=== PATIENT | male | born 2000 | race Caucasian/White ===

== ENCOUNTER 2021-05-05 17:21 | Emergency (ER) | payer BC ==
[~2021-05-05] VITALS: Ht 190.5 cm; Wt 90.5 kg
[2021-05-05] MEDS ORDERED: RABIES VACCINE /PF 2.5 UNITS IM-VACC ONE (18:00)
[2021-05-05] MEDS ORDERED: RABIES IMMUNE GLOBULIN/PF 300 UNITS/ML,1ML IM ONE (18:00)
[2021-05-05 18:48] VITALS: BP 112/71
== END 2021-05-05 19:11 | disposition home or self-care (01) ==
LOC: ED 18:00
DX: Z20.3 Contact with and (suspected) exposure to rabies (principal); Z23 Encounter for immunization
CPT/HCPCS: 90375; 90471; 90675; 96372

== ENCOUNTER 2021-05-08 19:02 | Emergency (ER) | payer BC ==
[~2021-05-08] VITALS: Ht 185.4 cm; Wt 89.4 kg
--- NOTE | 2021-05-08 19:42 | NUR ---
PT STATES HE NEEDS SECOND DOSE OF RABIES VACCINE.
--- NOTE | 2021-05-08 19:51 | NUR ---
RABIES VACCINE REQUESTED FROM PHARMACY.
[2021-05-08] MEDS ORDERED: RABIES VACCINE /PF 2.5 UNITS IM-VACC ONE (20:00)
[2021-05-08 20:42] VITALS: BP 133/76
[2021-05-09] MEDS ORDERED: KETOROLAC 30 MG/1 ML ONE (01:56)
[2021-05-09] MEDS ORDERED: MORPHINE SULFATE 4 MG/ML, 1ML ONE (01:57)
== END 2021-05-08 20:44 | disposition home or self-care (01) ==
LOC: ED 19:32
DX: Z20.3 Contact with and (suspected) exposure to rabies (principal); Z23 Encounter for immunization
CPT/HCPCS: 90471; 90675

== ENCOUNTER 2021-05-12 17:42 | Emergency (ER) | payer BC ==
[~2021-05-12] VITALS: Ht 185.4 cm; Wt 88.8 kg
[2021-05-12 17:45] VITALS: BP 128/54
--- NOTE | 2021-05-12 18:22 | NUR ---
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
[2021-05-12] MEDS ORDERED: RABIES VACCINE /PF 2.5 UNITS IM-VACC ONE (19:00)
== END 2021-05-12 19:48 | disposition home or self-care (01) ==
LOC: ED 18:10
DX: Z20.3 Contact with and (suspected) exposure to rabies (principal)
CPT/HCPCS: 90471; 90675; 99283

== ENCOUNTER 2021-05-20 11:01 | Emergency (ER) | payer BC ==
[~2021-05-20] VITALS: Ht 185.4 cm; Wt 87.4 kg
[2021-05-20 11:14] VITALS: BP 128/72
--- NOTE | 2021-05-20 11:25 | NUR ---
pt presents to ed for next round of rabies shots. states he has receieved 3/4 shots after potential bat exposure. pt a&o, resps even and unlabroed, binu lambert.
--- NOTE | 2021-05-20 11:45 | NUR ---
REQUEST FOR RABIES VACCINE SENT TO PHARMACY.
[2021-05-20] MEDS ORDERED: RABIES VACCINE /PF 2.5 UNITS IM-VACC ONE (12:00)
--- NOTE | 2021-05-20 12:15 | NUR ---
pt given vaccine per order, tolerated well. pt educated on discharge and follow-up, verbalized understanding. ambulatory to dc with steady gait.
== END 2021-05-20 12:17 | disposition home or self-care (01) ==
LOC: ED 11:42
DX: Z20.3 Contact with and (suspected) exposure to rabies (principal); Z23 Encounter for immunization
CPT/HCPCS: 90471; 90675